=== PATIENT | male | born 1965 | race African-American/Black ===

== ENCOUNTER 2021-04-13 08:16 | Day surgery (SDC) | payer BC ==
--- NOTE | 2021-04-13 08:03 | PCM.PREANE ---
Preanesthetic Assessment - Anesthesia/Transfusion/Family Hx Anesthesia History: No Prior Anesthesia Transfusion History: No Prior Transfusion(s) - Review of Systems General: No Symptoms Pulmonary: No Symptoms Cardiovascular: No Symptoms Gastrointestinal: No Symptoms Neurological: No Symptoms Other: Reports: None - Physical Assessment NPO Status Date: 04/13/21 NPO Status Time: 00:00 Height: 5 ft 11 in Weight: 213 lb ASA Class: 2 Mental Status: Alert & Oriented x3 Airway Class: Mallampati = 2 Dentition: Reports: Normal Dentition ROM/Head Extension: Full Lungs: Clear to Auscultation, Normal Respiratory Effort Cardiovascular: Regular Rate, Regular Rhythm - Allergies Allergies/Adverse Reactions: Allergies Allergy/AdvReac Type Severity Reaction Status Date / Time No Known Allergies Allergy Verified 04/07/21 10:52 - Acknowledgements Anesthesia Type Planned: General Anesthesia Pt an Appropriate Candidate for the Planned Anesthesia: Yes Alternatives and Risks of Anesthesia Discussed w Pt/Guardian: Yes Pt/Guardian Understands and Agrees with Anesthesia Plan: Yes PreAnesthesia Questionnaire HEENT History: Reports: Other (See Below) Other HEENT History: uses reading glasses Cardiovascular History: Reports: High Cholesterol, Hypertension Respiratory History: Reports: None Gastrointestinal History: Reports: None Genitourinary History: Reports: None Musculoskeletal History: Reports: None Neurological History: Reports: None Psychiatric History: Reports: None Endocrine/Metabolic History: Reports: Diabetes, Type II Hematologic History: Reports: None Immunologic History: Reports: None Oncologic (Cancer) History: Reports: None Dermatologic History: Reports: None - Past Surgical History Head Surgeries/Procedures: Reports: None - SUBSTANCE USE Tobacco Use Status *Q: Never Tobacco User Recreational Drug Use History: No - HOME MEDS Home Medications: Home Meds Aspirin [Adult Low Dose Aspirin EC] 81 mg PO DAILY 04/07/21 [History] Rosuvastatin Calcium 5 mg PO DAILY 04/07/21 [History] amLODIPine Besylate [Amlodipine Besylate] 10 mg PO QAM 04/07/21 [History] hydroCHLOROthiazide [Hydrochlorothiazide] 25 mg PO QAM 04/07/21 [History] sitaGLIPtin Phos/Metformin HCl [Janumet 50-1,000 MG] 1 tab PO DAILY 04/07/21 [History] - CURRENT (IN HOUSE) MEDS Current Meds: Current Medications Lactated Ringer's (Ringers, Lactated) 1,000 mls @ 125 mls/hr IV ASDIRECTED [id number]
[2021-04-13] MEDS ORDERED: Propofol 200 MG/20 ML SDV ONE ×4 (08:20→10:26)
[2021-04-13] MEDS ORDERED: fentaNYL 100 MCG/2 ML SDV ONE (08:24)
[2021-04-13] MEDS ORDERED: Lactated Ringers 1,000 ML IV SCH ×2 (09:00→12:45)
--- NOTE | 2021-04-13 10:38 | PCM.OPNOTE ---
- General Post-Op/Procedure Note Date of Surgery/Procedure: 04/13/21 Operative Procedure(s): Colonoscopy with polypectomies Findings: Colon polyps dictation number [id number] Pre Op Diagnosis: screening colonoscopy Post-Op Diagnosis: Colon polyps Anesthesia Technique: MAC Primary Surgeon: Skip Morrow Pathology: colon polyps Complications: None Condition: Good
--- NOTE | 2021-04-13 10:52 | PCM.POSTAN ---
POST ANESTHESIA ASSESSMENT - MENTAL STATUS Mental Status: Alert, Oriented - VITAL SIGNS Vital Signs: Last Vital Signs Temp 37 C 04/13/21 10:33 Pulse 81 04/13/21 10:43 Resp 18 04/13/21 10:43 BP 99/65 04/13/21 10:43 Pulse Ox 96 04/13/21 10:43 - RESPIRATORY Respiratory Status: Respiratory Rate WNL, Airway Patent, O2 Saturation Stable - CARDIOVASCULAR CV Status: Pulse Rate WNL, Blood Pressure Stable - GASTROINTESTINAL GI Status: No Symptoms - POST OP HYDRATION Hydration Status: Adequate & Stable
--- NOTE | 2021-04-13 10:54 | PCM48HPAN ---
Post Anesthesia Note - EVALUATION WITHIN 48HRS OF ANESTHETIC Vital Signs in Normal Range: Yes Patient Participated in Evaluation: Yes Respiratory Function Stable: Yes Airway Patent: Yes Cardiovascular Function Stable: Yes Hydration Status Stable: Yes Pain Control Satisfactory: Yes Nausea and Vomiting Control Satisfactory: Yes Mental Status Recovered: Yes Vital Signs: Last Vital Signs Temp 37 C 04/13/21 10:33 Pulse 81 04/13/21 10:43 Resp 18 04/13/21 10:43 BP 99/65 04/13/21 10:43 Pulse Ox 96 04/13/21 10:43
--- NOTE | 2021-04-13 13:56 | OR ---
SURGEON: ROMANA SALAZAR MD DATE OF PROCEDURE: 04/13/2021 PREOPERATIVE DIAGNOSIS: Screening colonoscopy. POSTOPERATIVE DIAGNOSES: Colon polyps, one in the cecum and one at 60 cm. PROCEDURE PERFORMED: 1. Colonoscopy. 2. Hot snare polypectomy. 3. Cold biopsy polypectomy. PRIMARY SURGEON: Romana Salazar MD EXTENT OF COLONOSCOPY: To the cecum. BOWEL PREP: Very good. LIMITATIONS: None. REASON FOR PROCEDURE: The patient is a pleasant 56-year-old gentleman. This will be his first colonoscopy. Denies any blood in stool. No history of colon cancer. Denies any changes in bowel habits. PROCEDURE IN DETAIL: A physical examination was performed. The major risks and benefits associated with the procedure were explained to the patient in detail. The patient verbalized understanding and agreement of the same. The patient was then connected to the appropriate monitoring devices and IV started. EKG, pulse, pulse oximetry, blood pressure, and capnography were monitored throughout the entire procedure. Continuous oxygen and sedation were provided by the anesthesiologist. The patient was placed in left lateral decubitus position. Sedation began. After adequate sedation was achieved, a digital rectal exam was performed. No rectal masses or polyps felt. Now, a well-lubricated Olympus colonoscope was inserted into the rectum and advanced under direct visualization to the level of the cecum. Cecum was identified by both visual and anatomic landmarks. Photograph was taken of the cecal cap and ileocecal valve. The patient had a polyp right in the cecum. This was removed with a hot snare polypectomy. The scope was then continued to be withdrawn. The patient had some minimal light liquid stool which was suctioned and irrigated out for a great look at the mucosa. The patient had another small diminutive polyp right about 60 cm. This was removed with cold biopsy polypectomy. Had good hemostasis. The scope was continued to be removed. The scope was retroflexed in the rectum. The scope was then completely removed and then the procedure was terminated. ENDOSCOPIC DIAGNOSIS: Colon polyps x2, one in the cecum, one at 60 cm. RECOMMENDATIONS: Followup colonoscopy will depend on pathology, but most likely will need another one in 5 years. He should have one sooner if develops signs or symptoms such as change in bowel habits or blood in the stool. LISA / CHRISTOPHER /[id number]
== END 2021-04-13 11:30 | disposition home or self-care (01) ==
LOC: MW.SDS 08:16
PROVIDERS: ATTEND Surgery
DX: Z12.11 Encounter for screening for malignant neoplasm of colon (principal); D12.0 Benign neoplasm of cecum; E11.9 Type 2 diabetes mellitus without complications; I10 Essential (primary) hypertension; E78.00 Pure hypercholesterolemia, unspecified; Z79.82 Long term (current) use of aspirin; Z79.84 Long term (current) use of oral hypoglycemic drugs; Z79.899 Other long term (current) drug therapy
CPT/HCPCS: 45380; 45385; 82947; J2704; J3010; J7120; 00812